=== PATIENT | female | born 1985 | race Caucasian/White ===

== ENCOUNTER 2018-04-25 08:50 | Day surgery (SDC) | payer MEDICAID ==
[2018-04-22 16:08] VITALS: BMI 19.9
--- NOTE | 2018-04-24 10:47 | PREOPHP ---
DATE OF ADMISSION: 04/25/2018 HISTORY: Ms. Jenny Naranjo is a 33-year-old 4, para 4, desires permanent surgical steriliz ation. MEDICAL HISTORY: None. MEDICATIONS: Oral contraception pill. PAST SURGICAL HISTORY, Vaginal delivery x4. The last delivery was in 05/2017. GYNECOLOGIC HISTORY: 11, regular, 3 to 4 days. Denies any sexually transmitted disease. Sexually ac tive with 1 partner. SOCIAL HISTORY: Denies any smoking, drugs or alcohol. FAMILY HISTORY: None. REVIEW OF SYSTEMS: All within normal except history of present illness. PHYSICAL EXAMINATION: HEENT: Within normal. LUNGS: CTA bilateral. HEART: S1, S2, regular rhythm. ABDOMEN: Soft, nontender, negative distention. EXTREMITIES: Negative edema. No calf tenderness. VAGINAL: Normal external genitalia. Cervix negative CMT, negative lesions. Adnexa fundus within nor mal limits. ASSESSMENT: Multiparity, desires permanent surgical sterilization. PLAN: Consent for laparoscopic bilateral tubal sterilization. The risks, benefits and alternatives explained. All questions were answered. Dictated By: KELLI SAUER/JOHANNE Conf#: [id number] DID#: [id number]
[2018-04-25] VITALS (20 sets, daily range): BP systolic 95–108; BP diastolic 5–68; PULSE 58–74; RESP 14–26; Ht 157.5 cm; Wt 78.3 kg
[~2018-04-25] VITALS: Ht 157.5 cm; Wt 78.3 kg
[~2018-04-25 08:50] MED LIST: CALC-649; FERR27TA; PREN1TAB49
[2018-04-25] MEDS ORDERED: NORE0.3528 PO (09:27)
--- NOTE | 2018-04-25 09:42 | PREAC ---
Date/Time of Note Date/Time of Note DATE: 04/25/18 TIME: 09:40 Anesthesia Eval and Record Evaluation Time Pre-Procedure Interview DATE: 04/25/18 TIME: 09:40 Age 33 Sex female NPO: 8 hrs Preoperative diagnosis Sterilization Planned procedure Lap BTL Past Medical History Past Medical History: None Surgery & Anesthesia Issues No known issue Meds Anticoagulation: No Beta Tyra within 24 hr: No Reason Beta Tyra not given: Pt. not on B-Tyra Reported Medications Norethindrone (Sharobel) 0.35 Mg Tablet, 0.35 MG PO DAILY 04/25/18 Discontinued Reported Medications Calcium Carbonate (Calcium) 1 Tab Tablet 10/30/09 Ferrous Sulfate (Iron) 1 Tab Tablet 10/30/09 Vits W-Ca,Fe,Fa(<1MG) () 1 Tab Tablet 10/30/09 Meds reviewed: Yes Allergies Coded Allergies: No Known Drug Allergies (Verified Allergy, Mild, 12/13/09) Allergies Reviewed: Yes Labs/Studies Labs Reviewed: Reviewed by anesthesiologist test: Negative Studies: ECG Pre-procedure Exam Last vitals BP:112/56, pulse:78, spo2:100%, T:98,8 Airway: Adequate mouth opening, Adequate thyromental dist Mallampati: Mallampati II Teeth: Normal Lung: Normal Heart: Normal ASA Physical Status ASA physical status: 2 Emergency: None Planned Anesthetic General/MAC: ETT Planned Pain Management Parenteral pain med Pre-operative Attestations Prior to commencing anesthesia and surgery, the patient was re-evaluated, there was verification of: *The patient's identity *The results of appropriate recent lab work and preoperative vital signs *The above evaluation not changing prior to induction *Anesthetic plan, risk benefits, alternative and complications discussed with patient/family; questions answered; patient/family understands, accepts and wishes to proceed. CHLOE KIMBROUGH MD Apr 25, 2018 09:42
[2018-04-25] MEDS ORDERED: FENTAnyl 50 MCG/ML VIAL ONE (10:00)
[2018-04-25] MEDS ORDERED: MIDAZOLAM 1 MG/ML 2 ML INJ ONE (10:00)
--- NOTE | 2018-04-25 10:00 | HPN ---
Date/Time of Note Date/Time of Note DATE: 04/25/18 TIME: 10:00 Interval H&P Admission Note Pt. seen H&P reviewed: No system changes KELLI CHRISTIANSON MD Apr 25, 2018 10:00
[2018-04-25] MEDS ORDERED: PROPOFOL 20 ML ONE (10:53)
[2018-04-25] MEDS ORDERED: GLYCOPYRROLATE 0.4 MG INJ ONE (10:53)
[2018-04-25] MEDS ORDERED: NEOSTIGMINE 3 MG/3 ML SYRINGE ONE (10:53)
[2018-04-25] MEDS ORDERED: ROCURONIUM 50 MG INJ ONE (10:53)
[2018-04-25] MEDS ORDERED: ONDANSETRON 4 MG INJ ONE (10:53)
[2018-04-25] MEDS ORDERED: CEFAZOLIN 1 GM INJ ONE (10:53)
[2018-04-25] MEDS ORDERED: LIDOCAINE 2% (SDV) 5 ML INJ ONE (10:53)
[2018-04-25] MEDS ORDERED: KETOROLAC 30 MG INJ ONE (10:54)
--- NOTE | 2018-04-25 10:59 | OPPN ---
Date/Time of Note Date/Time of Note DATE: 04/25/18 TIME: 10:57 Operative Report Planned Procedure Procedure date Apr 25, 2018 Procedure(s) laparoscopic bilateral tubal fulguration. Performed by see signature line Retail Banker: KELLI CHRISTIANSON MD 2nd Retail Banker none Anesthesiologist: CHLOE KIMBROUGH MD Pre-procedure diagnosis Multiparity, desires permanent surgical sterilization. . [id number] Anesthesia Type: Fhtrj2j general Post-Procedure Post-procedure diagnosis same Findings normal uterus tubes and ovaries. Estimated Blood Loss: minimal Specimen(s) none Grafts/Implant(s) none Complication(s) none KELLI CHRISTIANSON MD Apr 25, 2018 10:59
--- NOTE | 2018-04-25 11:02 | PD.PPDC ---
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 [id number] Patient Condition: [id number] Good Diet Doxqo5Pv Diet: Tymqt0e Resume Regular Diet Activity/Restrictions Fmmha6Ch Activity: Tqoui4m Normal Activity May Shower Gbysd8Gu Restrictions: Rocjq8d No Exercising No Lifting No Driving No Sexual Activity Nothing in the Vagina No [place] No Tampons, douche Wound/Drain Care Instructions [id number] Wound/Drain Care Instructions: [place]0o Wash with soap and water Keep clean and dry Follow-up Follow-up with Physician: 2, Week/Weeks Return to clinic for [id number] FACILITIES MAINTENANCE MANAGER Instructions: Roiuv5f Fever greater than 101 Chills Worsening abdominal pain Excessive Vaginal Bleeding More than 2 pads per hour Unable to tolerate diet Cwonh4Lf OB Instructions: Trrni3e Breast Tenderness Depression Blurried Vision Headache [id number] Surgical Instructions: Kbsed7e Incisional Drainage Incisional Redness KELLI CHRISTIANSON MD Apr 25, 2018 11:02
--- NOTE | 2018-04-25 11:13 | NUR ---
PACU PT FROM OR AWAKE ON O2 MASK NO RESP DISTRESS C/O PAIN 9 OUT OF 10 WAS MEDICATED WITH PAIN MEDS PER ORDER RT AC IV SITE 20 ISMAEL CLEAR
--- NOTE | 2018-04-25 11:20 | PAC ---
Date/Time of Note Date/Time of Note DATE: 04/25/18 TIME: 11:19 Post-Anesthesia Notes Post-Anesthesia Note Last documented vital signs Vital Signs Date Temp Pulse Resp B/P (MAP) Pulse Ox O2 O2 Flow FiO2 Time Delivery Rate 04/25/18 98.3 11:14 Activity: WNL Respiratory function: WNL Cardiovascular function: WNL Mental status: Baseline Pain reasonably controlled: Yes Hydration appropriate: Yes Nausea/Vomiting absent: Yes Comments BP:110/64, pulse:68, spo2:100%, T:98,8 CHLOE KIMBROUGH MD Apr 25, 2018 11:20
[2018-04-25] MEDS ORDERED: DIPHENHYDRAMINE 50 MG INJ IV PRN (11:30)
[2018-04-25] MEDS ORDERED: FENTAnyl 50 MCG/ML VIAL IV PRN (11:30)
[2018-04-25] MEDS ORDERED: MEPERIDINE 25 MG INJ IV PRN (11:30)
[2018-04-25] MEDS ORDERED: HYDROmorphONE 1 MG/5 ML IV SYRINGE IV PRN ×2 (11:30)
[2018-04-25] MEDS ORDERED: ONDANSETRON 4 MG INJ IV PRN (11:30)
[2018-04-25] MEDS ORDERED: METOCLOPRAMIDE 10 MG INJ IV PRN (11:30)
--- NOTE | 2018-04-25 12:18 | NUR ---
PACU PT AWAKE ALERT NO C/O PAIN NO RESP DISTRESS FAMILY NOTIFIED NO VAGINAL BLEEDING ABDOMEN WITH BAND AID X2 SITE CLEAR RT AC 20 ISMAEL IV SITE CLEAR REPORT GIVEN TO LEANA KAN
--- NOTE | 2018-04-25 13:02 | OPR ---
DATE OF OPERATION: 04/25/2018 PREOPERATIVE DIAGNOSIS: Multiparity, desires permanent surgical sterilization. POSTOPERATIVE DIAGNOSIS: Multiparity, desires permanent surgical sterilization. OPERATION PERFORMED: Laparoscopic bilateral tubal fulguration. SURGEON: Kelli Rodriguez MD MAIN LINE ASSEMBLER: None. ANESTHESIA: General. COMPLICATIONS: None. ESTIMATED BLOOD LOSS: Minimal. FINDINGS: Normal uterus, tubes and ovaries. DESCRIPTION OF PROCEDURE: After explaining the risks, benefits and alternatives, the patient had con sent signed in chart, the patient was taken to the operating room where general anesthesia was obtain ed without difficulty. The patient was then examined under anesthesia and found to have a small ante verted uterus with normal adnexa. She was then placed in dorsal lithotomy position and prepared and draped in normal sterile fashion. A heavy weighted speculum was then placed in the patient's vagina and the anterior lip of the cervix was grasped with a single tooth tenaculum. A HUMI uterine manipul ator was then advanced into the uterus to provide a means to manipulate the uterus. The speculum was then removed from the vagina. Attention was then turned to the patient's vagina and a 5 mm skin inc ision was made in the umbilical fold. A Veress needle was carefully introduced into the peritoneal c avity at 45 degree angle while tenting the abdominal wall. Intraperitoneal placement was confirmed b y water-filled syringe and a drop in intraabdominal pressure with insufflation of CO2 gas. The troca r and sleeve were then advanced without difficulty into the abdomen where intra-abdominal placement w as confirmed by laparoscope. Pneumoperitoneum was obtained with 4 liters of CO2 gas. A 5 mm trocar and sleeve were then advanced without difficulty into the abdominal wall. Intraperitoneal placement was confirmed by laparoscope. A second skin incision was made 2 cm above the symphysis pubis in the midline. The trocar and sleeve were then advanced with direct visualization. A survey of the patien t's abdomen revealed entirely normal anatomy. The right and left fallopian tube were fulgurated at t he isthmus and ampullary regions with good blanching. There was no bleeding from the mesosalpinx. T he instruments were then removed from the patient's abdomen and the incision was repaired with 3-0 Vi cryl. The HUMI was removed from the vagina with no bleeding noted from the cervix. The patient tole rated procedure well. All counts were correct. The patient was taken to recovery room in stable con dition. Dictated By: KELLI SAUER/JOHANNE Conf#: [id number] DID#: [id number]
== END 2018-04-25 13:28 | disposition home or self-care (01) ==
LOC: SDS 08:50
PROVIDERS: ATTEND Obstetrics & Gynecology
DX: Z30.2 Encounter for sterilization (principal)
CPT/HCPCS: 58670; J0690; J1170; J1885; J2175; J2250; J2405; J2710; J3010; Z7610

== ENCOUNTER 2018-06-09 16:37 | Emergency (ER) | payer MEDICAID ==
[~2018-06-09] VITALS: Wt 79.0 kg
[~2018-06-09 16:37] MED LIST changes: -CALC-649; -FERR27TA; +NORE0.3528 PO; -PREN1TAB49
--- NOTE | 2018-06-09 21:34 | ERD ---
ER Documentation Chief Complaint Chief Complaint post op wound check ROS All systems reviewed and are negative except as per history of present illness. Medications Home Meds Reported Medications Norethindrone (Sharobel) 0.35 Mg Tablet, 0.35 MG PO DAILY 04/25/18 Allergies Allergies: Coded Allergies: No Known Drug Allergies (Verified Allergy, Mild, 12/13/09) PMhx/Soc Medical and Surgical Hx: pt denies Medical Hx History of Surgery: Yes (lap appy) Anesthesia Reaction: No Hx Neurological Disorder: No Hx Respiratory Disorders: No Hx Cardiac Disorders: No Hx Psychiatric Problems: No Hx Miscellaneous Medical Probl: No Hx Alcohol Use: No Hx Substance Use: No Hx Tobacco Use: No Physical Exam Vitals Vital Signs Date Temp Pulse Resp B/P (MAP) Pulse Ox O2 O2 Flow FiO2 Time Delivery Rate 06/09/18 98.1 98 18 137/72 98 16:47 (93) Physical Exam Const: No acute distress Head: Atraumatic Eyes: Normal Conjunctiva ENT: Normal External Ears, Nose and Mouth. Neck: Full range of motion. No meningismus. Resp: Clear to auscultation bilaterally Cardio: Regular rate and rhythm, no murmurs Abd: Soft, non tender, non distended. Normal bowel sounds Skin: No petechiae or rashes Back: No midline or flank tenderness Ext: No cyanosis, or edema Neur: Awake and alert Psych: Normal Mood and Affect Departure Diagnosis: Primary Impression: Wound of skin Condition: Fair Patient Instructions: Wound Care Referrals: [facility] YOU HAVE RECEIVED A MEDICAL SCREENING EXAM AND THE RESULTS INDICATE THAT YOU DO NOT HAVE A CONDITION THAT REQUIRES URGENT TREATMENT IN THE EMERGENCY DEPARTMENT. FURTHER EVALUATION AND TREATMENT OF YOUR CONDITION CAN WAIT UNTIL YOU ARE SEEN IN YOUR DOCTORS OFFICE WITHIN THE NEXT 1-2 DAYS. IT IS YOUR RESPONSIBILITY TO MAKE AN APPOINTMENT FOR FOLOW-UP CARE. IF YOU HAVE A PRIMARY DOCTOR --you should call your primary doctor and schedule an appointment IF YOU DO NOT HAVE A PRIMARY DOCTOR YOU CAN CALL OUR PHYSICIAN REFERRAL HOTLINE AT IF YOU CAN NOT AFFORD TO SEE A PHYSICIAN YOU CAN CHOSE FROM THE FOLLOWING [facility] [address] [facility]. [facility] [address] [facility]. [facility] [address] [facility]. [facility] [address] [facility]. [facility] [address] [facility]. [facility]. [address] Additional Instructions: Llame al doctor MAANA y capri jermaine PERLA PARA DENTRO DE 1-2 DALAL.Dgale a la secretaria que nosotros le instruimos hacer esta perla.Avise o llame si barclay condicin se empeora antes de la perla. Regresa aqui si peor o no mejor. KELLI ESPINOZA DO Jun 09, 2018 21:34
[2018-06-09 21:37] VITALS: BP 115/77; PULSE 84; RESP 18
== END 2018-06-09 21:40 | disposition home or self-care (01) ==
LOC: FTE 16:37
DX: L08.9 Local infection of the skin and subcutaneous tissue, unspecified (principal)
CPT/HCPCS: 76536; Z7502